=== PATIENT | female | born 1970 | race Caucasian/White ===

== ENCOUNTER 2020-12-10 00:08 | Emergency (ER) | payer SELFPAY ==
[~2020-12-10] VITALS: Ht 165.1 cm; Wt 69.0 kg
[2020-12-10 00:35] LABS: BASOPHILS % (AUTO) 1 % (0-1); EOSINOPHILS % (AUTO) 2 % (1-7); LYMPHOCYTES % (AUTO) 32 % (22-44); MEAN CORPUSCULAR HEMOGLOBIN 30.9 pg (27.0-34.8); MEAN CORPUSCULAR HGB CONC 34.1 g/dL (32.4-35.8); MEAN PLATELET VOLUME 8.6 fL (7.4-10.4); MONOCYTES % (AUTO) 7 % (2-9); NEUTROPHILS % (AUTO) 58 % (42-75); PLATELET COUNT 322 x10^3/uL (130-400); RED CELL DISTRIBUTION WIDTH 14.6 % (9.6-15.2)
[2020-12-10 00:40] LABS: MD NO
[2020-12-10 00:45] LABS: ALANINE AMINOTRANSFERASE 57 U/L (12-78); ALBUMIN 3.7 g/dL (3.4-5.0); ANION GAP 8 mmol/L (5-15); CALCIUM 8.5 mg/dL (8.5-10.1); CHLORIDE 108 mmol/L (98-107); CREATININE 0.74 mg/dL (0.55-1.02)
[2020-12-10 00:49] LABS: ALKALINE PHOSPHATASE 122 U/L (45-117); BILIRUBIN,TOTAL 0.2 mg/dL (0.2-1.0); TOTAL PROTEIN 7.8 g/dL (6.4-8.2)
--- NOTE | 2020-12-10 00:55 | NUR ---
PT AMBULATED TO ROOM, PLACED ON O2 SAT PROBE, AND BP CUFF. PT CHANGED INTO GOWN, AND PT GAVE HISTORY, AND IS CHINESE SPEAKER ONLY. PT STATES SHE STARTED HAVING BLEEDING FROM RECTUM, NOTED IN HER STOOL TODAY. PT SHOWED A PICTURE OF THE STOOL, AND IT IS WELL FORMED, BROWN STOOL, WITH GWEN RED BLOOD IN IT, SEPERATE FROM THE STOOL. PT A&OX4, AND AMBULATES. PT TO RESTROOM TO HAVE A BM AGAIN.
[2020-12-10] MEDS ORDERED: SODIUM CHLORIDE 0.9% 1,000ML IVBOLUS ONE (01:00)
[2020-12-10] MEDS ORDERED: SODIUM CHLORIDE FLUSH 10ML SYR IVF ONE (01:00)
[2020-12-10 01:05] VITALS: BP 154/94
[2020-12-10 01:44] LABS: MICROSCOPIC NOT IND
--- NOTE | 2020-12-10 02:03 | NUR ---
F/U AND D/C INSTRUCTIONS GIVEN TO PT AND SHE V/U. PT AMBULATED TO D/C DESK.
== END 2020-12-10 02:05 | disposition home or self-care (01) ==
LOC: ED 01:55
DX: K62.5 Hemorrhage of anus and rectum (principal); K62.89 Other specified diseases of anus and rectum; I10 Essential (primary) hypertension; E11.9 Type 2 diabetes mellitus without complications; E78.00 Pure hypercholesterolemia, unspecified
CPT/HCPCS: 36415; 80053; 81003; 83690; 84703; 85025; 86850; 86900; 99283